=== PATIENT | male | born 1990 | race Caucasian/White ===

== ENCOUNTER 2020-04-28 19:38 | Emergency (ER) | payer OTHER ==
[~2020-04-28 19:38] MED LIST: ATIVAN0.5 MG PO; BACTRIM DS TAB1 EACH PO; BACTROBAN OINT22 GM EXT; IBUPROFEN600 MG PO; KEFLEX CAP 500500 MG PO; NORFLEX 100 MG100 MG PO; PERCOCET 5-3251 EACH PO; PERCOCET 5/325 T1 EA PO; PERCOCET 7.5-31 EACH PO; PHENERGAN 12.12.5 M1 PO; PREDNISONE 50 M50 MG PO; ZOFRAN4 MG PO
[2020-04-28 20:08] LABS: HEMOGLOBIN 15.8 gm/dl (14.0-17.5); RED BLOOD COUNT 5.07 M/UL (4.20-5.50); WHITE BLOOD COUNT 8.5 K/UL (4.5-11.0)
[2020-04-28 20:48] LABS: BUN/CREATININE RATIO 17 (0-10)
== END 2020-04-28 21:54 | disposition home or self-care (01) ==
LOC: ER1 19:38
PROVIDERS: Physician Assistant
DX: R07.9 Chest pain, unspecified (principal); I10 Essential (primary) hypertension; F17.210 Nicotine dependence, cigarettes, uncomplicated; Z20.822 Contact with and (suspected) exposure to COVID-19
CPT/HCPCS: 71045; 80053; 82550; 82553; 83874; 84484; 85025; 93005; 99285; U0002

== ENCOUNTER 2021-01-09 00:11 | Emergency (ER) | payer OTHER ==
[2021-01-09] MEDS ORDERED: ENDOCET 5-3251 EACH PO (02:29)
== END 2021-01-09 02:54 | disposition home or self-care (01) ==
LOC: ER1 00:11
DX: T84.020A Dislocation of internal right hip prosthesis, initial encounter (principal); W01.0XXA Fall on same level from slipping, tripping and stumbling without subsequent striking against object, initial encounter; Y92.009 Unspecified place in unspecified non-institutional (private) residence as the place of occurrence of the external cause
CPT/HCPCS: 73502; 99283

== ENCOUNTER 2021-05-24 18:07 | Emergency (ER) | payer OTHER ==
[~2021-05-24 18:07] MED LIST changes: +ENDOCET 5-3251 EACH PO
== END 2021-05-24 19:41 | disposition left against medical advice (07) ==
LOC: ER1 18:07
DX: Z53.21 Procedure and treatment not carried out due to patient leaving prior to being seen by health care provider (principal)

== ENCOUNTER 2021-07-03 01:07 | Emergency (ER) | payer OTHER ==
[2021-07-03] MEDS ORDERED: IBUPROFEN800 MG PO (03:41)
[2021-07-03] MEDS ORDERED: CEPHALEXIN500 M1 PO (03:41)
== END 2021-07-03 03:50 | disposition home or self-care (01) ==
LOC: ER1 01:07
DX: S61.112A Laceration without foreign body of left thumb with damage to nail, initial encounter (principal); Z23 Encounter for immunization; W31.2XXA Contact with powered woodworking and forming machines, initial encounter; Y92.009 Unspecified place in unspecified non-institutional (private) residence as the place of occurrence of the external cause
CPT/HCPCS: 12001; 73140; 90471; 90714; 96372; 99283; J1885